=== PATIENT | male | born 2000 | race Hispanic/Latino ===

== ENCOUNTER 2022-06-02 14:27 | Emergency (ER) | payer SELFPAY ==
--- NOTE | 2022-06-02 14:31 | ERPHSYRPT ---
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 There was also a small laceration to the distal third of his fingernail on the same digit. His sensation is intact and he has full range of motion. Tetanus status up-to-date. Timing/Duration: today Quality: painful Severity: moderate Location: hands (Left fourth digit) Associated Symptoms: denies symptoms Allergies/Adverse Reactions: No Known Drug Allergies Allergy (Verified 06/02/22 14:33) Travel Risk - International Travel Have you traveled outside of the country in past 3 weeks: No - Coronavirus Screening Are you exhibiting any of the following symptoms?: No Close contact with a COVID-19 positive Pt in past 14-21 Days: No - Review of Systems Constitutional: No Symptoms Eyes: No Symptoms Ears, Nose, & Throat: No Symptoms Respiratory: No Symptoms Cardiac: No Symptoms Abdominal/Gastrointestinal: No Symptoms Genitourinary Symptoms: No Symptoms Musculoskeletal: No Symptoms Skin: Other (Multiple small degloved sites distal fourth digit left hand with a small laceration to the distal third of the nail) Neurological: No Symptoms Psychological: No Symptoms Endocrine: No Symptoms Hematologic/Lymphatic: No Symptoms Immunological/Allergic: No Symptoms All Other Systems: Reviewed and Negative - Past Medical History Pertinent Past Medical History: No - Past Surgical History Past Surgical History: No - Nursing Vital Signs Nursing Vital Signs: Initial Vital Signs Temperature 99 F 06/02/22 14:33 Pulse Rate 64 06/02/22 14:33 Respiratory Rate 20 06/02/22 14:33 Blood Pressure 142/91 06/02/22 14:33 O2 Sat by Pulse Oximetry 98 06/02/22 14:33 Pain Scale Pain Intensity 3 - Physical Exam General Appearance: no apparent distress, alert Eye Exam: PERRL/EOMI, eyes nml inspection Ears, Nose, Throat Exam: normal ENT inspection, moist mucous membranes Neck Exam: normal inspection, non-tender, supple, full range of motion Respiratory Exam: airway intact, No chest tenderness, No respiratory distress Gastrointestinal/Abdomen Exam: No tenderness Rectal Exam: not done Back Exam: normal inspection, normal range of motion, No CVA tenderness, No vertebral tenderness Extremity Exam: normal range of motion, pelvis stable, tenderness (Left hand distal fourth digit with islands of degloved skin. No areas to place suture. Proximately 3 mm transverse oriented laceration to the distal third of the nail of the same digit. No active bleeding. 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 Neurovascularly intact. No tendon injury) Lymphatic Exam: No adenopathy SpO2 Interpretation: normal O2 Delivery: Room Air Ordered Tests: Active Orders 24 hr Category Date Time Status Wound Care STAT Care 06/02/22 14:44 Active HAND (MINIMUM 3 VIEWS) Stat Exams 06/02/22 14:45 Completed Medication Summary Discontinued Medications Generic Name Dose Route Start Last Admin Trade Name Freq PRN Reason Stop Dose Admin Bacitracin Zinc 0.9 each 06/02/22 14:44 Bacitracin Packet 1 Each Pckt TP 06/02/22 14:45 STAT ONE Cephalexin HCl 500 mg 06/02/22 14:46 06/02/22 14:50 Cephalexin Mh500 Mg Capsule PO 06/02/22 14:47 500 mg STAT ONE Administration Cephalexin HCl Confirm 06/02/22 14:49 Cephalexin Mh500 Mg Capsule Administered 06/02/22 14:50 Dose 500 mg .ROUTE .STK-MED ONE Oxycodone/Acetaminophen 1 tab 06/02/22 14:46 06/02/22 14:50 Oxycodone Hcl/Apap 5 Mg/325 Mg Tablet PO 06/02/22 14:47 1 tab STAT STA Administration Oxycodone/Acetaminophen Confirm 06/02/22 14:49 Oxycodone Hcl/Apap 5 Mg/325 Mg Tablet Administered 06/02/22 14:50 Dose 1 tab .ROUTE .STK-MED ONE - Progress Progress: improved, pain not gone completely Progress Note: 06/02/22 15:14 X-ray left hand shows no acute fractures or dislocations. Counseled pt/family regarding: diagnosis, need for follow-up, rad results - Departure Departure Disposition: Home Clinical Impression: Nail, injury by, Finger abrasion Condition: Stable Critical Care Time: No Additional Instructions: Keep current dressing in place for 24 hours. After 24 hours remove the dressing and wash the site daily thereafter. After washing, dry the site then place antibiotic ointment of choice to the site, cover with nonstick gauze and bandage. Do this daily. Take your antibiotics and pain medicine as prescribed. Prescriptions: Oxycodone HCl/Acetaminophen [Percocet 5-325 mg Tablet] 1 each PO Q8H PRN PRN #6 tablet MDD 3 PRN Reason: Moderate To Severe Pain Cephalexin Mh 500 mg [Keflex 500 mg] 500 mg PO TID #15 cap
[2022-06-02 14:48] VITALS: BP 142/91; PULSE 64; O2SAT 98
[2022-06-02] MEDS ORDERED: PERCOCET TABLET 5/325MG ONE (14:49)
[2022-06-02] MEDS ORDERED: KEFLEX 500 MG ONE (14:49)
[2022-06-02] MEDS: PERCOCET TABLET 5/325MG PO STA (14:50)
[2022-06-02] MEDS: KEFLEX 500 MG PO ONE (14:50)
--- NOTE | 2022-06-02 15:08 | XRAY ---
Indication: 4th digit laceration. Comparison: None 3 view left hand demonstrates distal 4th tuft soft tissue laceration. No other bony, articular, or soft tissue abnormalities.
[2022-06-02] MEDS: BACIGUENT PACKET TP ONE (15:30)
== END 2022-06-02 15:31 | disposition home or self-care (01) ==
LOC: ED 14:27
DX: S61.305A Unspecified open wound of left ring finger with damage to nail, initial encounter (principal); W23.1XXA Caught, crushed, jammed, or pinched between stationary objects, initial encounter; Z79.891 Long term (current) use of opiate analgesic
CPT/HCPCS: 73130; 99283; A9270-GY